=== PATIENT | female | born 1955 | race African-American/Black ===

== ENCOUNTER 2019-09-27 09:19 | Observation (INO) ==
[2019-09-22 14:04] LABS: HEMATOCRIT 30.2 % (37.0-47.0); HEMOGLOBIN 9.4 g/dL (12.0-16.0); MCH 27.6 PG (27-31); MCHC 31.1 g/dL (33-37); MCV 88.8 FL (81-99); MPV 11.2 FL (7.4-10.4); RBC 3.4 XMIL (4.2-5.4); RDW 14.7 % (11.5-14.5); WBC 5.63 X1000 (4.8-10.8)
[2019-09-22 14:27] LABS: CALCIUM 9.5 mg/dL (8.8-10.2); CREATININE 4.3 mg/dL (0.5-0.9); POTASSIUM 4.7 mmol/L (3.5-5.1)
[2019-09-27] MEDS ORDERED: PEPCID ONE (10:16)
[2019-09-27] MEDS ORDERED: REGLAN ONE (10:16)
[2019-09-27] MEDS ORDERED: 1/2 NS 500 ML ONE (10:17)
[2019-09-27] MEDS ORDERED: CLINDAMYCIN 300 MG in NS 50 ML IV ONE (10:30)
[2019-09-27] MEDS ORDERED: APRESOLINE PO ONE (11:15)
[2019-09-27] MEDS ORDERED: TOPROL XL PO ONE (11:15)
[2019-09-27] MEDS ORDERED: AVAPRO PO ONE (11:15)
[2019-09-27] MEDS ORDERED: DIPRIVAN 1% ONE ×2 (12:38→16:42)
[2019-09-27] MEDS ORDERED: NS 1,000 ML ONE (14:12)
[2019-09-27] MEDS ORDERED: HEPARIN ONE (14:12)
[2019-09-27] MEDS ORDERED: XYLOCAINE 1% ONE (14:44)
[2019-09-27] MEDS ORDERED: NEO-SYNEPHRINE ONE (15:15)
[2019-09-27] MEDS ORDERED: NEOSPORIN OINTMENT PACKET ONE (15:27)
[2019-09-27] MEDS ORDERED: HEPARIN (DOSE) ONE (15:29)
[2019-09-27] MEDS: DILAUDID ONE ×5 (17:34→18:34)
[2019-09-27] MEDS: NARCAN ONE ×2 (18:16→18:30)
[2019-09-27] MEDS ORDERED: NARCAN IV ONE (18:30)
[2019-09-27] MEDS ORDERED: ZOFRAN IV PRN (19:12)
[2019-09-27] MEDS ORDERED: NORCO-7.5 PO PRN (19:12)
--- NOTE | 2019-09-27 21:28 | OPERATIVE NOTE ---
PROCEDURE DATE: 09/27/2019 PREOPERATIVE DIAGNOSIS: Chronic kidney disease. POSTOPERATIVE DIAGNOSIS: Chronic kidney disease. PROCEDURE: Creation of left brachiobasilic arteriovenous fistula with transposition. SURGEON: Randy Kyle MD. ANESTHESIA: General. ESTIMATED BLOOD LOSS: 25 mL. COMPLICATIONS: None apparent. FINDINGS: The basilic vein appeared to be of adequate caliber. It dilated up to at least 5 mm and had a good flow through it at the completion of our anastomosis. TECHNIQUE: She was brought to the operating room and placed supine on the table. General anesthesia was induced. The left arm was abducted. She was prepped and draped in usual sterile fashion. The previously marked brachial artery and basilic vein were identified, and an incision was made longitudinally between the two with a knife. This was carried down through the subcutaneous tissue with cautery. The basilic vein was identified near the antecubital fossa where it forked. Each of the forks were dissected out and ligated distally with 4-0 silk. I then proceeded to dissect out the fistula throughout its length for several inches in length, preserving the adjacent nerves and its branches. All of the attachments to the soft tissue were divided with Metzenbaum scissors. There were several venous branches which were ligated proximally and distally with 3-0 and 4-0 silk and divided in between with scissors. Once I felt like I had adequate length of the vein, I marked the anterior aspect with a marking pen and divided it proximal to the fork and antecubital fossa. I then divided the intervening tissue between each of the forked branches so that it spatulated out nicely. I dilated up the vein to a size 5. Proximally, it was occluded and I then filled the vein with heparin saline. There did not appear to be any leaking anywhere and it had good caliber to it. I then dissected out the brachial artery near the antecubital fossa and encircled with vessel loops proximally and distally. Next, 3000 units of heparin were given by the equipment service associate. We allowed this to circulate for 3 minutes. I then occluded the artery proximally and distally and made an arteriotomy. I then created a tunnel subcutaneously lateral to the superior incision by using a hemostat and a curved Larisa clamp. The vein was brought through this tunnel in a subcutaneous fashion with the Larisa clamp. It was kept in its proper orientation and it approximated the artery. It was a little long, so I trimmed the vein back several millimeters. I then occluded the artery proximally and distally with the vessel loops, and made an arteriotomy with and an 11 blade and Call scissors. I then fashioned an end-to-side [id number] anastomosis using running 7-0 Prolene in 2 directions. I reestablished flow in the artery in the fistula. There appeared to be good flow in the fistula. There was minimal oozing from the anastomosis, which was controlled with Gel-Foam. There did not appear to be any bleeding throughout the course of our wound bed. There was good flow in the fistula. I closed the subcutaneous tissues with interrupted 3-0 Polysorb, and the skin with a running 4-0 subcuticular Biosyn and Steri-Strips. She was awakened in stable condition and transferred to the recovery room. cc: Randy Kyle MD
--- NOTE | 2019-09-27 21:41 | OPERATIVE NOTE ---
PROCEDURE DATE: 09/27/2019 PREOPERATIVE DIAGNOSIS: Postoperative bleeding after arteriovenous fistula. POSTOPERATIVE DIAGNOSIS: Postoperative bleeding after arteriovenous fistula. PROCEDURE: Evacuation of hematoma and suture ligation of bleeding venous branches from the fistula. SURGEON: Randy Kyle MD. ANESTHESIA: General. ESTIMATED BLOOD LOSS: 250 mL. COMPLICATIONS: None during this portion, but this was obviously a procedure for postoperative bleeding due to the previous fistula creation on the same date. FINDINGS: The patient was seen in the postoperative recovery room after fistula creation and was noted to have bright red bleeding from the incision. Decision was made to take her back to the operating room for wound exploration and control of bleeding. She had two areas proximally in the fistula where there were silk sutures on vein branches that had come loose. TECHNIQUE: She was brought to the operating room. General anesthesia was induced. She was prepped and draped in usual sterile fashion. The Biosyn stitch was cut with a knife. The subcutaneous Polysorb were cut with scissors. Proximally, I found the source of bleeding from silk sutures that had come off ligated vein branches. Proximal and distal control was obtained with vascular clamps. I oversewed these venous branches with interrupted 6-0 Prolene. I then reestablished flow in the fistula. There were no signs of any further bleeding. I washed out the wound with saline and then closed with interrupted subcutaneous 3-0 Polysorb and skin clips on the skin. There appeared to be good control of the bleeding and maintained flow in the fistula. She was transferred to the recovery room in stable condition. cc: Randy Kyle MD
[2019-09-28 08:36] LABS: HEMATOCRIT 31.6 % (37.0-47.0); HEMOGLOBIN 9.4 g/dL (12.0-16.0)
[2019-09-28] MEDS ORDERED: PERIDEX MT SCH (09:00)
[2019-09-28 12:03] VITALS: BP 170/62
--- NOTE | 2019-09-28 12:42 | GENERAL SURGERY PROGRESS NOTE ---
DATE: 09/28/2019 SUBJECTIVE: The patient is doing okay this morning. She reports soreness in her arm, but not severe pain. She says both hands feel cold, and that is normal for her. OBJECTIVE: Vital Signs: She is afebrile. Vital signs are stable. General: She is awake, alert, and oriented x3. No acute distress. Extremities: The left hand is cool, but she has good function and has a palpable radial pulse in the left wrist. Her upper arm bandage was examined. There was some bloody shadow on the outer gauze. However, there was no active bleeding through the inner gauze. There was no significant hematoma, and there was a thrill in the fistula. ASSESSMENT AND PLAN: A 64-year-old female status post left brachiobasilic transposed fistula creation yesterday with take back for postoperative bleeding. She has been stable overnight. No significant bleeding since her surgery ended last night. We will discharge her home. She will follow up with me next week. Instructions were given. cc: Randy Kyle MD
== END 2019-09-28 12:11 | disposition home or self-care (01) ==
LOC: PAT 09:19 → 4N 09:19 → OPS 09:19
PROVIDERS: ADMIT Surgery; ATTEND Surgery

== ENCOUNTER 2019-11-10 10:07 | Inpatient (IN) ==
[2019-11-10] MEDS ORDERED: ASPIRIN PO ONE (10:27)
--- NOTE | 2019-11-10 10:32 | EKG Report ---
Test Performed on : 11/10/2019 10:18:42 AM Test Reason : SOB Blood Pressure : / mmHG Vent. Rate : 067 BPM Atrial Rate : 067 BPM P-R Int : 148 ms QRS Dur : 074 ms QT Int : 426 ms P-R-T Axes : 046 -14 023 degrees QTc Int : 450 ms Normal sinus rhythm. Inferior infarct (cited on or before 18-MAY-2018) Anterior infarct (cited on or before 18-MAY-2018) Abnormal ECG When compared with ECG of 18-APR-2019 15:41, Nonspecific T wave abnormality no longer evident in Lateral leads Unconfirmed Result
--- NOTE | 2019-11-10 10:51 | Diag Imaging Result Doc PS360 ---
EXAM: CHEST-2 VIEWS HISTORY: SOB TECHNIQUE: Two views COMPARISON: None. FINDINGS: The lungs are well expanded. There are calcified pleural plaques in the mid and lower right hemithorax with multiple old right rib fractures. Heart is mildly enlarged. No pulmonary edema. Questionable trace pleural fluid. IMPRESSION: Right lower pleural calcifications and pleural thickening. Mild cardiomegaly. Electronically signed by Wilbur Romero 11/10/2019 10:49 AM
[2019-11-10 11:35] LABS: BASO# 0.01 X1000 (0.0-0.2); BASO% 0.2 % (0.0-0.8); EOS# 0.06 X1000 (0.0-0.7); HEMATOCRIT 25.4 % (37.0-47.0); HEMOGLOBIN 8.1 g/dL (12.0-16.0); LYMPH# 1.18 X1000 (1.2-3.4); LYMPH% 20.2 % (20.5-51.1); MCH 28.5 PG (27-31); MCHC 31.9 g/dL (33-37); MCV 89.4 FL (81-99); MONO# 0.52 X1000 (0.11-0.59); MONO% 8.9 % (1.7-9.3); MPV 11.6 FL (7.4-10.4); NEUT# 4.07 X1000 (1.4-6.5); NEUT% 69.7 % (42.2-75.2); PLT 172 X1000 (130-400); RBC 2.84 XMIL (4.2-5.4); RDW 15.5 % (11.5-14.5); WBC 5.84 X1000 (4.8-10.8)
[2019-11-10 11:58] LABS: INR 1.03; PROTIME 13.7 Seconds (11.0-16.0)
[2019-11-10 11:59] LABS: PTT 29.7 Seconds (22.3-41.8)
[2019-11-10 12:17] LABS: ALB/GLOB RATIO 1.7; ALBUMIN 3.8 g/dL (3.5-5.0); CALCIUM 8.7 mg/dL (8.8-10.2); CREATININE 5.8 mg/dL (0.5-0.9); MAGNESIUM 1.6 mg/dL (1.5-2.7); POTASSIUM 5.4 mmol/L (3.5-5.1); TOTAL BILIRUBIN 0.48 mg/dL (0.20-1.00); TOTAL PROTEIN 6.1 g/dL (6.3-8.3)
[2019-11-10] MEDS ORDERED: NITROGLYCERIN TOP ONE (13:07)
[2019-11-10] MEDS ORDERED: LASIX IV ONE (13:07)
[2019-11-10] MEDS ORDERED: HUMULIN R IV ONE (13:09)
--- NOTE | 2019-11-10 13:09 | PROVIDER DOCUMENTATION ---
This chart was entered by Kat Garcia Scribe, acting as scribe for Rafael Cantu MD. HPI-Respiratory General - General Chief Complaint: Shortness of Breath Stated Complaint: SOB Time Seen by Provider: 11/10/19 10:23 Source: patient Allergies/Adverse Reactions: Patient Allergies Allergy/AdvReac Type Severity Reaction Status Date / Time amoxicillin [From Augmentin] Allergy Unknown Verified 11/10/19 10:57 clavulanic acid Allergy Unknown Verified 11/10/19 10:57 [From Augmentin] Home Medications: Home Medication List Medication Instructions Recorded Confirmed Last Taken Type Metoprolol Succinate [Toprol Xl] 200 mg PO DAILY 04/14/15 11/10/19 11/10/19 History Furosemide [Lasix] 20 mg PO DAILY 09/22/16 11/10/19 11/09/19 History Hydralazine [Apresoline] 100 mg PO TID 09/22/16 11/10/19 11/10/19 History Insulin Aspart [Novolog Flexpen] 12 unit SQ TID 09/22/16 11/10/19 11/09/19 History Insulin Detemir [Levemir] 40 unit SUBQ DAILY 09/22/16 11/10/19 11/09/19 History Latanoprost 0.005% Oph Soln 1 drop BOTH EYES HS 09/22/16 11/10/19 11/09/19 History [Xalatan 0.005% Oph Soln] Cinnamon Bark [Cinnamon] 500 mg PO DAILY 05/18/18 11/10/19 Unknown History Vitamin B Complex Vit C No.4 150 mg PO DAILY 05/18/18 11/10/19 11/09/19 History [Super B Complex] Amlodipine [Norvasc] 5 mg PO DAILY 09/22/19 11/10/19 11/09/19 History Clonidine [Catapres] 0.1 mg PO HS 09/22/19 11/10/19 11/10/19 History Ergocalciferol (Vitamin D2) 50,000 unit PO Q7D 09/22/19 11/10/19 11/05/19 History [Vitamin D] Irbesartan 150 mg PO DAILY 09/22/19 11/10/19 11/09/19 History Brimonidine/Timolol Ophth Soln 1 drp OPH BID 09/27/19 11/10/19 11/10/19 History [Combigan Ophth Soln] Ezetimibe [Zetia] 10 mg PO DAILY 09/27/19 11/10/19 11/09/19 History Isoniazid [INH] 300 mg PO DAILY 09/27/19 11/10/19 11/09/19 History Netarsudil Mesylate [Rhopressa] 2.5 ml OPHTHALMIC (EYE) DAILY 09/27/19 11/10/19 11/09/19 History Pyridoxine HCl (Vitamin B6) 25 mg PO DAILY 09/27/19 11/10/19 11/09/19 History [Vitamin B-6] Sodium Bicarbonate 650 mg PO BID 09/27/19 11/10/19 11/09/19 History Olmesartan Medoxomil [Benicar] 1 tab PO DAILY 11/10/19 11/10/19 11/10/19 History - History of Present Illness-Resp Nature of Presenting Problem: Patient is a 64 year old female who presents with shortness of breath. States shortness of breath has been gradually worsening. History of asthma and anemia. Denies fever, cough and chest pain. Quality of Pain: reports: none Severity in ED: reports: mild Onset/Duration: reports: gradual Timing: reports: still present, getting worse Cough Quality/Degree: reports: no cough Modifying Factors: worse with: exertion Associated Symptoms: reports: shortness of breath. denies: chest pain/soreness, cough, fever/chills Similar Symptoms Previously?: Yes Recently seen or treated by another doctor?: Yes Review of Systems - Adult - REVIEW OF SYSTEMS - ADULT Constitutional: reports: no symptoms reported. denies: chills, fever, weight loss Eyes: reports: no symptoms reported Ears, Nose, Mouth & Throat: reports: no symptoms reported Cardiovascular: reports: no symptoms reported. denies: chest pain Respiratory: reports: see HPI, dyspnea on exertion, shortness of breath. denies: cough Gastrointestinal: reports: no symptoms reported Genitourinary: reports: no symptoms reported Musculoskeletal: reports: no symptoms reported Integumentary: reports: no symptoms reported Neurological: reports: no symptoms reported Psychiatric: reports: no symptoms reported Endocrine: reports: no symptoms reported Hematologic/Lymphatic: reports: no symptoms reported Allergic/Immunologic: reports: no symptoms reported All Other Systems: Reviewed and Negative Past History - Adult - PAST MEDICAL HISTORY-ADULT Review of Records: reports: Old Records Reviewed, Nursing Assessment Review, Medications Reviewed, Social history reviewed & non-contributory. Major Childhood Illnesses: reports: denies history Cardiovascular: reports: HTN Respiratory: reports: asthma Gastrointestinal: reports: denies history Obstetrical/Gynecological: reports: denies history Genitourinary: reports: kidney disease Musculoskeletal: reports: denies history Neurological: reports: denies history Endocrine/Immune: reports: anemia, Diabetes Other Conditions: reports: denies history - PRIOR SURGERIES/PROCEDURES Surgical/Procedure History: reports: reviewed, not pertinent, - IMMUNIZATION STATUS Childhood Immunizations: See Nurse Assessment Flu Vaccine: See Nurse Assessment - FAMILY HISTORY Family History: reviewed, not pertinent - SOCIAL HISTORY Smoking: cigarettes (former) Substance Use: denies Physical Exam-General - PHYSICAL EXAM-ADULT Initial Vital Signs Reviewed: Yes - CONSTITUTIONAL General Appearance: alert, no apparent distress. negative: lethargic - EYES Eyes: PERRL/EOMI, pale conjunctivae. negative: scleral icterus - HEAD, EARS, NOSE, MOUTH & THROAT HENMT: normocephalic/atraumatic, moist mucous membranes, normal ENT inspection - RESPIRATORY Respiratory: chest non-tender, lungs clear, normal breath sounds. negative: crackles, wheezing - CARDIOVASCULAR Cardiovascular: regular rate, rhythm, no gallop, no murmur. negative: tachycardia - GASTROINTESTINAL (ABDOMEN) Abdominal Exam: normal bowel sounds, non tender, soft. negative: guarding - MUSCULOSKELETAL Extremity: non-tender, normal inspection, other (pale nail beds.). negative: pedal edema - SKIN Integumentary: normal turgor, warm/dry, pallor. negative: abrasion(s), diaphoresis - NEUROLOGIC Neurologic: grossly normal. negative: aphasia, facial droop - PSYCHIATRIC Psych/Mental Status: normal mood/affect, oriented x 3. negative: anxious - HEART Score HEART Score: History: Slightly Suspicious HEART Score: ECG: Non-Specific Repolarization Disturbance/LBBB/PM HEART Score: Age: 45-65 Years HEART Score: Risk Factors for Atherosclerotic Disease: > or = 3 Risk Factors or History of Atherosclerotic Disease HEART Score: Troponin: 1-3x Normal Limit Total HEART Score:: 5 Progress - PLAN OF CARE/RESULTS Progress/Plan/Lab Results: Vital Signs - 8 hr 11/10/19 10:20 11/10/19 10:39 11/10/19 11:28 Temperature 98.0 F Pulse Rate 67 68 66 Respiratory Rate 18 16 15 Blood Pressure 205/71 196/82 182/72 O2 Sat by Pulse Oximetry 93 L 95 97 11/10/19 12:03 Temperature Pulse Rate 65 Respiratory Rate 14 Blood Pressure 176/72 O2 Sat by Pulse Oximetry 93 L Laboratory Results - last 24 hr 11/10/19 11/10/19 11/10/19 11:12 11:12 11:12 WBC 5.84 RBC 2.84 L Hgb 8.1 L Hct 25.4 L MCV 89.4 MCH 28.5 MCHC 31.9 L RDW Std Deviation 15.5 H Plt Count 172 MPV 11.6 H Neut % (Auto) 69.7 Lymph % (Auto) 20.2 L Thayer % (Auto) 8.9 Eos % (Auto) 1.0 Baso % (Auto) 0.2 Neut # (Auto) 4.07 Lymph # (Auto) 1.18 L [place]ayer # (Auto) 0.52 Eos # (Auto) 0.06 Baso # (Auto) 0.01 PT INR PTT (Actin FS) Sodium 141 Potassium 5.4 H Chloride 101 Carbon Dioxide 19 L Anion Gap 21 BUN 65 H Creatinine 5.8 H Estimated GFR/1.73 m2 9 BUN/Creatinine Ratio 11 Glucose 363 H Calculated Osmolality 315 Calcium 8.7 L Magnesium 1.6 Total Bilirubin 0.48 AST 26 ALT 37 H Alkaline Phosphatase 104 Creatine Kinase 297 H Creatine Kinase Index 1.3 CK-MB (CK-2) 3.73 Troponin T May-P-Ayntielywfh Pept Total Protein 6.1 L Albumin 3.8 Globulin 2.3 Albumin/Globulin Ratio 1.7 TSH 1.40 Urine Source Urine Color Urine Turbidity Urine pH Ur Specific [place] Urine Protein Ur Glucose (Stick) Ur Ketones (Stick) Urine Blood Urine Nitrite Urine Bilirubin Urobilinogen Dipstick Urine Leukocytes Urine WBC (Auto) Urine RBC (Auto) U Epithel Cells (Auto) Urine Bacteria (Auto) Blood Type Antibody Screen 11/10/19 11/10/19 11/10/19 11:12 11:12 11:12 WBC RBC Hgb Hct MCV MCH MCHC RDW Std Deviation Plt Count MPV Neut % (Auto) Lymph % (Auto) Thayer % (Auto) Eos % (Auto) Baso % (Auto) Neut # (Auto) Lymph # (Auto) Thayer # (Auto) Eos # (Auto) Baso # (Auto) PT 13.7 INR 1.03 PTT (Actin FS) 29.7 Sodium Potassium Chloride Carbon Dioxide Anion Gap BUN Creatinine Estimated GFR/1.73 m2 BUN/Creatinine Ratio Glucose Calculated Osmolality Calcium Magnesium Total Bilirubin AST ALT Alkaline Phosphatase Creatine Kinase Creatine Kinase Index CK-MB (CK-2) Troponin T 0.113 H Oem-B-Geukucfycel Pept 21615 H Total Protein Albumin Globulin Albumin/Globulin Ratio TSH Urine Source Urine Color Urine Turbidity Urine pH Ur Specific [place] Urine Protein Ur Glucose (Stick) Ur Ketones (Stick) Urine Blood Urine Nitrite Urine Bilirubin Urobilinogen Dipstick Urine Leukocytes Urine WBC (Auto) Urine RBC (Auto) U Epithel Cells (Auto) Urine Bacteria (Auto) Blood Type Antibody Screen 11/10/19 11/10/19 11:12 12:26 WBC RBC Hgb Hct MCV MCH MCHC RDW Std Deviation Plt Count MPV Neut % (Auto) Lymph % (Auto) Thayer % (Auto) Eos % (Auto) Baso % (Auto) Neut # (Auto) Lymph # (Auto) Thayer # (Auto) Eos # (Auto) Baso # (Auto) PT INR PTT (Actin FS) Sodium Potassium Chloride Carbon Dioxide Anion Gap BUN Creatinine Estimated GFR/1.73 m2 BUN/Creatinine Ratio Glucose Calculated Osmolality Calcium Magnesium Total Bilirubin AST ALT Alkaline Phosphatase Creatine Kinase Creatine Kinase Index CK-MB (CK-2) Troponin T Dkq-H-Wtmbjrhpspd Pept Total Protein Albumin Globulin Albumin/Globulin Ratio TSH Urine Source CLEAN CATCH Urine Color YELLOW Urine Turbidity CLEAR Urine pH 6.5 Ur Specific [place] 1.012 Urine Protein 300 A Ur Glucose (Stick) 1000 A Ur Ketones (Stick) TRACE A Urine Blood TRACE A Urine Nitrite NEGATIVE Urine Bilirubin NEGATIVE Urobilinogen Dipstick NORMAL Urine Leukocytes NEGATIVE Urine WBC (Auto) <10 Urine RBC (Auto) <10 U Epithel Cells (Auto) <10 Urine Bacteria (Auto) NEGATIVE Blood Type O POSITIVE Antibody Screen NEGATIVE Orders Category Date Time Status Cardiac Monitoring DIRECTED Care 11/10/19 10:27 Active Oxygen Therapy- ED Nursing DIRECTED Care 11/10/19 10:27 Active Saline Loc NOW Care 11/10/19 10:27 Active CHEST-2 VIEWS [RAD] Stat Exams 11/10/19 10:27 Completed CBC WITH ELECTRONIC DIFF [HEME] Stat Lab 11/10/19 11:12 Completed CK PROFILE [SP CHEM] Stat Lab 11/10/19 11:12 Completed COMPREHENSIVE METABOLIC PANEL [CHEM] Stat Lab 11/10/19 11:12 Completed MAGNESIUM [CHEM] Stat Lab 11/10/19 11:12 Completed PRO B-NATRIURETIC PEPTIDE Stat Lab 11/10/19 11:12 Completed PROTIME WITH INR [COAG] Stat Lab 11/10/19 11:12 Completed PTT [COAG] Stat Lab 11/10/19 11:12 Completed TROPONIN T Stat Lab 11/10/19 11:12 Completed TSH Stat Lab 11/10/19 11:12 Completed TYPE & SCREEN [BBK] Stat Lab 11/10/19 11:12 Completed URINALYSIS W/POSS RFLX CULT [URINALYSIS] Stat Lab 11/10/19 12:26 Completed Aspirin Med 11/10/19 10:27 Discontinued 325 mg PO NOW ONE Furosemide [Lasix] Med 11/10/19 13:07 Discontinued 20 mg IV NOW ONE Insulin Human Regular [Humulin R] Med 11/10/19 13:09 Discontinued 10 unit IV NOW ONE Nitroglycerin Med 11/10/19 13:07 Discontinued 0.5 inch TOP NOW ONE CP/SOB/Palp >45 yrs of Age Stat Oth 11/10/19 10:27 Ordered EKG [EKG] Stat Ther 11/10/19 10:27 Draft Result Diagrams: 11/10/19 11:12 11/10/19 11:12 - REASSESSMENT Reassessment #1 Time Reassessed: 13:04 Status: unchanged (Patient's renal function is worsening, her anemia is worse, and there is evidence of CHF as well. No prior cardiac cardiac work-up. Troponin is elevated as well. Needs admission.) Reassessment Comment: ALso given IV insulin for hyperglycemia, nitropaste, po asa, IV lasix - EKG 1 Time of EKG reading by physician:: 10:18 EKG Read and Signed by:: Rafael Cantu EKG Interpretation (*Must complete 3 of following elements*): Abnormal Rate: 67 Rhythm: NSR [place]: normal [place] Interval: normal Comments: NAD; poor R wave; NSSTTWC - XRAY 1 XRAY Study: Chest Impression: See EMR Report (EXAM: CHEST-2 VIEWS HISTORY: SOB TECHNIQUE: Two views COMPARISON: None. FINDINGS: The lungs are well expanded. There are calcified pleural plaques in the mid and lower right hemithorax with multiple old right rib fractures. Heart is mildly enlarged. No pulmonary edema. Questionable trace pleural fluid. IMPRESSION: Right lower pleural calcifications and pleural thickening. Mild cardiomegaly. Electronically signed by Wilbur Romero 11/10/2019 10:49 AM 11/10/19 1049 Interpreting Physician: Wilbur Romero MD Dictated Date/Time: 11/10/19 1047 cc: Rafael Cantu MD; Cecil Ford MD) - CONSULTS/PCP/HOSPITALIST Notification #1 *Consult/PCP/Hospitalist*: MARCELO Hernandez, paged at 1300 Time Discussed: 14:00 Reason/Comments: Dr. Cantu consulted with Vicenta about patient Consult Disposition: Will see in ED, Admit #2 Consult: [place] Time Discussed: 13:21 Consult Disposition: other (will see in consult) Departure - Departure Date of Disposition Decision: 11/10/19 Time of Disposition Decision: 13:05 DIAGNOSIS: Exertional dyspnea, Elevated troponin I level, New onset of congestive heart failure, Type 2 diabetes mellitus with hyperglycemia, with long-term current use of insulin Anemia in chronic kidney disease (CKD) Qualifiers: Chronic kidney disease stage: stage 4 (severe) Qualified Code(s): N18.4 - Chronic kidney disease, stage 4 (severe) Disposition: ADMITTED INPATIENT 09 Certified Medical Emergency: Emergent Condition: Fair Referrals and Follow-Ups: Cecil Ford MD [Primary Care Provider] - - Critical Care Note This patient required my direct & personal management of CC.: Yes Total Time (mins): 40 Critical Care Statement: This patient required my direct personal management to treat or rule out processes, the absence of which, could potentiallly result in sudden, clinically significant life or limb threatening deterioration. Attestation - Physician/ SEBAS Attestation Patient care was provided by Advanced Practice Provider:: No The physician spent face to face time with patient:: Yes Advanced Practice Provider documentation review:: Supervising physician onsite and consulted in the evaluation and care of this patient. The physician did have a face to face encounter with the patient. This chart was documented by the indicated scribe, (Kat Garcia, Joan) and accurately reflects the services I performed and decisions made by me, Rafael Cantu MD, as attested by the provider's signature.
[2019-11-10 13:12] LABS: URINE SOURCE CLEAN CATCH
[2019-11-10 13:17] LABS: BILIRUBIN URINE NEGATIVE (NEGATIVE); BLOOD URINE TRACE (NEGATIVE); COLOR YELLOW; GLUCOSE URINE 1000 mg/dL (NEGATIVE); KETONE URINE TRACE mg/dL (NEGATIVE); LEUKOCYTES URINE NEGATIVE (NEGATIVE); NITRITE URINE NEGATIVE (NEGATIVE); PH URINE 6.5; PROTEIN URINE 300 mg/dL (NEGATIVE); SP GRAVITY URINE 1.012; TURBIDITY URINE CLEAR (CLEAR); UR EPITHELIAL CELLS <10 /HPF (<10); URINE BACTERIA NEGATIVE /HPF; URINE RBC <10 /HPF (<10); URINE WBC <10 /HPF (<10); UROBILINOGEN URINE NORMAL (NORMAL)
[2019-11-10 13:49] LABS: CK INDEX 1.3 (0.0-2.5); CK-MB 3.73 ng/mL (0.0-5.0)
[2019-11-10] MEDS ORDERED: ZOFRAN IV PRN (15:00)
[2019-11-10] MEDS ORDERED: VELTASSA PO ONE (15:17)
[2019-11-10] MEDS ORDERED: LASIX IV SCH (17:15)
[2019-11-10] MEDS ORDERED: APRESOLINE IV ONE (17:24)
[2019-11-10 17:42] LABS: CK INDEX 1.3 (0.0-2.5); CK-MB 3.26 ng/mL (0.0-5.0)
--- NOTE | 2019-11-10 18:24 | HISTORY AND PHYSICAL ---
ADDENDUM: The patient seen and examined by me [id number]. All the laboratory, vital signs, and images were reviewed. The patient presented to the emergency department with shortness of breath that has been getting worse for the past few days. It looks like she has been prepared to be dialyzed in the near future and actually she had a fistula done recently on the left arm that is working fine. Her creatinine went up compared with last month from 4.3 to 5.8 and her potassium is 5.4 today. Troponin slightly elevated at 0.11 and then the second one is 0.10, but she is not complaining of chest pain, jaw pain, or arm pain. This could be related with her chronic kidney disease. EKG did not show any ST changes, but shows normal sinus rhythm. She does have a chest x- ray today that showed apparently right lower pleural calcification and pleural thickening. She already had a CT scan done a couple years ago that showed also evidence of a prior granulomatosis infection but no pneumonia at that time and thick pleural calcification in the right hemithorax, so I do not think this lesion is new. This patient has high blood pressure. I will put her on hydralazine as needed. I will continue with her home medications. As per the patient, she already took her morning. Dr. Gannon has been consulted, Nephrology Department, for possible dialysis and management. She received a dose of Veltassa to try to decrease a little bit the potassium level which is 5.4. We will monitor. It looks like she has a history of asthma and anemia and anemia probably is chronic, normocytic. I will get the anemia workup. I agree with the rest of the nurse practitioner's assessment and plan. cc: Shane Cedillo MD
[2019-11-10] MEDS ORDERED: APRESOLINE PO SCH (21:00)
[2019-11-10] MEDS: APRESOLINE IV PRN (21:05)
[2019-11-10] MEDS: APRESOLINE PO SCH (21:05)
[2019-11-10] MEDS: MIRALAX PO SCH (21:06)
[2019-11-10] MEDS: CATAPRES PO SCH (21:06)
[2019-11-10] MEDS: HUMALOG SUBQ SCH (21:06)
--- NOTE | 2019-11-10 21:32 | HISTORY AND PHYSICAL ---
CHIEF COMPLAINT: Shortness of breath. HISTORY OF PRESENT ILLNESS: This is a very pleasant, 64-year-old female who presented to the emergency room complaining of increasing shortness of breath that has been present over the last 4 days. She states over the last 2 days she has developed about 60- to 90-degree orthopnea, sleeping in a chair. She denied any fevers or chills or productive cough. She denies any prior episodes. She does have a history of acute kidney injury. Having been prepared to be dialyzed in the near future, she underwent placement of a fistula on 09/28/2019. She is being followed by Dr. Gannon. Creatinine today is 5.8. In review, she has stayed at 4.1 to 4.3 since 02/07/2019. She denies any change in her medications. She denies any chest pain or palpitations. PAST MEDICAL HISTORY: Hypertension, chronic kidney disease, asthma, diabetes mellitus type 2. PAST SURGICAL HISTORY: , left arm AV fistula. SOCIAL HISTORY: She denies any alcohol, tobacco, or illicit drug use. ALLERGIES: Augmentin with unknown reaction. HOME MEDICATIONS: List will be obtained by the nursing staff, and once verified, will review and restart as appropriate. REVIEW OF SYSTEMS: Discussed with the patient the pertinent positives stated in the HPI. She denied any chest pain or palpitations, any syncope or dizziness, any fevers or chills or productive cough, any nausea, vomiting, diarrhea, constipation, black or bloody vomitus or stools, any hematuria, dysuria, frequency or urgency. PHYSICAL EXAMINATION: GENERAL: This is a 64-year-old female who is sitting up on the stretcher in the emergency room in no distress. VITAL SIGNS: Blood pressure is 176/70 with a heart rate of 65. Respirations are 16. Temperature is 97.9 oral with room air saturations 93% to 97%. EYES: Pupils are equal and round and react to light. EOMs are intact. Sclerae are anicteric. HEENT: Head is normocephalic, atraumatic. Mucous membranes moist. NECK: Supple with trachea midline. CARDIOVASCULAR: Regular rate and rhythm. S1 and S2 appreciated. She does have some bilateral lower extremity edema with peripheral pulses palpable x4 extremities. Calves are nontender bilaterally. PULMONARY: Breath sounds are clear. No increased work of breathing noted. Chest rises and falls symmetrically with respiration. Chest wall is nontender to palpation. GASTROINTESTINAL: Abdomen is soft, nontender, nondistended with bowel sounds in all 4 quadrants. NEUROLOGIC: She is alert oriented x3. SKIN: Warm and dry. LABS: WBC is 5.8 with hemoglobin 8.1, hematocrit 25.4, platelets of 172. Sodium 141, potassium 5.4, BUN 65 with creatinine 5.8, and blood sugar of 363. Troponin at 11 o'clock was 0.113. Repeat troponin at 5 was 0.107 with a proBNP of 21,353. Urinalysis was positive for glucose. Chest x-ray revealed right lower pleural calcifications and pleural thickening with mild cardiomegaly. ASSESSMENT: 1. Acute kidney injury in the setting of chronic kidney disease. 2. Hyperkalemia. 3. Hypertension. 4. Elevated troponin. 5. Elevated proBNP. 6. Diabetes mellitus type 2 with hyperglycemia. 7. Shortness of breath. PLAN: The patient will be admitted to the hospital and placed on telemetry. Will give supplemental oxygen as needed. We will update her home medications, and once verified, will review and restart as appropriate. She will be placed on a renal diabetic diet. We will consult Dr. Gannon. Will trend her troponins and cardiac profile, checking a renal profile daily. We will continue hydralazine 125 mg p.o. every 8 hours. We will give a dose of Veltassa now and check labs in the morning. Will pattern blood glucose with sliding-scale insulin. We will order anemia workup. The patient was examined, and the plan was discussed with Dr. Ponce. Further treatments pending hospital course. Dictated by MARCELO Steen for Shane Cedillo MD cc: MARCELO Steen MD
[2019-11-10 22:54] LABS: CK INDEX 1.1 (0.0-2.5); CK-MB 2.53 ng/mL (0.0-5.0)
[2019-11-11] MEDS: APRESOLINE PO SCH ×3 (04:34→21:22)
[2019-11-11] MEDS: APRESOLINE IV PRN ×3 (04:34→18:49)
[2019-11-11 05:45] LABS: HEMATOCRIT 25.6 % (37.0-47.0); HEMOGLOBIN 8.1 g/dL (12.0-16.0); MCH 28.3 PG (27-31); MCHC 31.6 g/dL (33-37); MCV 89.5 FL (81-99); MPV 11.2 FL (7.4-10.4); RBC 2.86 XMIL (4.2-5.4); RDW 15.7 % (11.5-14.5); WBC 5.39 X1000 (4.8-10.8)
[2019-11-11 05:57] LABS: IRON SATURATION 20 %; TIBC 240 ug/dL; TOTAL IRON 48 ug/dL (49-151); UNBOUND IRON 192 ug/dL (112-346)
[2019-11-11 06:07] LABS: ALBUMIN 3.5 g/dL (3.5-5.0); CALCIUM 8.8 mg/dL (8.8-10.2); PHOSPHORUS 4.4 mg/dL (2.7-4.5); POTASSIUM 4.3 mmol/L (3.5-5.1)
[2019-11-11 06:10] LABS: FERRITIN 121 ng/mL (13-150)
[2019-11-11] MEDS: HUMALOG SUBQ SCH ×4 (06:15→21:26)
[2019-11-11] MEDS ORDERED: HUMALOG SUBQ SCH (08:00)
[2019-11-11] MEDS ORDERED: APRESOLINE PO SCH (09:00)
[2019-11-11] MEDS: LASIX PO SCH (09:15)
[2019-11-11] MEDS: NORVASC PO SCH (09:15)
[2019-11-11] MEDS: ZETIA PO SCH (09:15)
[2019-11-11] MEDS: LEVEMIR SUBQ SCH (09:16)
[2019-11-11] MEDS: AVAPRO PO SCH (09:16)
[2019-11-11] MEDS: MIRALAX PO SCH ×2 (09:16→21:26)
[2019-11-11] MEDS ORDERED: EMLA CREAM TOP ONE (11:41)
--- NOTE | 2019-11-11 13:48 | PROGRESS NOTE ---
DATE: 11/11/2019 SUBJECTIVE: The patient seems to be feeling better today. She has been scheduled for dialysis, her shortness of breath is improving. Will monitor for now. OBJECTIVE: Vital Signs: Temperature 98.2 degrees, pulse 72, respiratory rate 16, blood pressure 219/67, oxygen saturation 93 on room air. HEENT: Head normocephalic, no trauma. PERRLA. Neck: Supple. No JVD. No masses. Central trachea. Chest: Clear to auscultation. No wheezing. No rales. Abdomen: Soft, nontender, nondistended. No hepatosplenomegaly. Extremities: No clubbing, no cyanosis. She has a left arm AV fistula. Neurological: The patient is awake, alert, oriented x3. No focal deficits. LABORATORY: WBC 5.3, hemoglobin 8.1, hematocrit 25.6, platelets 178,000. Sodium 140, potassium 4.3, chloride 103, bicarbonate 22, BUN 61, creatinine 6, glucose 214, calcium 8.8. ASSESSMENT AND PLAN: 1. Acute on chronic kidney disease, this patient has been basically prepared for dialysis. She has a left arm fistula that will be used for the very 1st time today, will continue to monitor. 2. Some chest discomfort with shortness of breath. Her troponins have been elevated but actually they are trending down slowly, likely related to her acute on chronic kidney disease. Hopefully these will be better after dialysis. Her EKG did not show any ST abnormalities. 3. Type 2 diabetes, I will check a hemoglobin A1c. For now we will continue with same treatment and let us see how she does. 4. Hypertension, uncontrolled, I have placed this patient back on her home medications, also will continue with hydralazine as needed, she will get dialysis today so hopefully this will help a little bit. 5. Hyperkalemia, resolved. cc: Shane Cedillo MD
--- NOTE | 2019-11-11 14:04 | NEPHROLOGY CONSULTATION ---
DATE: 11/11/2019 REASON FOR CONSULTATION: End-stage renal disease, dyspnea, medical management. CONSULTING PROVIDER: Shane Cedillo MD. HISTORY OF PRESENT ILLNESS: Ms. Wilburn is a 64-year-old woman who is well known to us. We have been following her for an extended time as she has progressive chronic kidney disease stage V. She had a left upper arm basilic vein transposition fistula created on 09/27/2019. She had immediate postoperative bleeding that was managed surgically and has done well since then. She came to the hospital because of 2 days of worsening shortness of breath as well as sleep disturbance. No cough, chills, fever. Her evaluation in the emergency room found her blood pressure elevated at 205/71 with room air saturation of 93%. No anorexia or vomiting. PAST MEDICAL HISTORY: 1. Diabetes. 2. Hypertension. 3. CKD stage 5. 4. COPD/asthma. HOME MEDICATIONS: Include 1. Metoprolol. 2. Latanoprost. 3. Hydralazine. 4. Insulin. 5. Furosemide. 6. Multivitamin. 7. Amlodipine. 8. Clonidine. 9. Ergocalciferol. 10. Irbesartan. 11. INH. 12. Sodium bicarbonate. 13. Combigan. 14. Ezetimibe. 15. Olmesartan. ALLERGIES: Amoxicillin. SOCIAL HISTORY: No alcohol or tobacco. FAMILY HISTORY: Noncontributory. REVIEW OF SYSTEMS: Noncontributory. PHYSICAL EXAMINATION: Vital Signs: Blood pressure 219/67, heart rate 72, respirations 16, afebrile. General: Middle-aged woman sitting up in no distress. Skin: Warm and dry. Conjunctivae are pink. Pupils are equal. Oropharynx is clear. Normal tongue. Normal teeth. Neck: Supple. Trachea is midline. Neck vein distention is not appreciated. Heart: PMI is nondisplaced. Regular rate and rhythm. No rubs. Lungs: Have equal excursion, equal breath sounds. No crackles, wheezes, accessory muscle use or retractions. Abdomen: Soft, nontender. Bowel sounds present. No organomegaly. Extremities: One to 2+ edema. No clubbing or cyanosis. Left upper arm AV fistula is well healed and mature. IMPRESSION: 1. Chronic kidney disease stage V. Multiple uremic symptoms. We will initiate hemodialysis today with a 2-hour treatment using a 2 potassium bath and a goal of 1 to 2 L ultrafiltration. Repeat tomorrow. 17-gauge needles with 250 blood flow. 2. Anemia: We will check iron stores, B12, folate. IV iron. 3. Hypertension. Continue home medications and re-evaluate after volume management is improved. cc: Ronnie Gannon MD
--- NOTE | 2019-11-11 18:15 | ECHO REPORT ---
ORDER DATE: 11/10/2019 INDICATIONS: Dyspnea, elevated proBNP. FINDINGS: 1. The right atrium appears mildly enlarged at 4.2 cm. 2. Mild tricuspid regurgitation. 3. Normal RV size and systolic function. 4. No significant pulmonic insufficiency. 5. Severe left atrial enlargement with a volume index of 45. 6. No mitral prolapse. Mild mitral regurgitation. No mitral stenosis. 7. Normal LV size. The end-diastolic dimension is estimated at 5.3 cm. Moderate left ventricular hypertrophy with interventricular septal wall thickness of 1.6 cm. Normal LV systolic function. Estimated EF is 60% with normal wall motion. 8. Aortic valve opens well. It is sclerotic. Mild insufficiency. No stenosis. It is trileaflet. 9. Aorta appears normal in visualized segments. 10. There is a suggestion of a small posterior pericardial effusion. No clear evidence of tamponade-type physiology. cc: MD Selena Sevilla CRNP
[2019-11-11] MEDS ORDERED: HEPARIN IV PRN (18:55)
[2019-11-11] MEDS ORDERED: NS 2,000 ML MISC PRN (18:55)
[2019-11-11] MEDS: CATAPRES PO SCH (21:22)
[2019-11-11] MEDS: XALATAN 0.005% OPH SOLN BOTH EYES SCH (21:53)
[2019-11-11] MEDS: COMBIGAN OPHTH SOLN OPH SCH (21:54)
[2019-11-12] MEDS: PATIENT'S OWN MED OPH SCH ×3 (01:54→21:49)
[2019-11-12] MEDS: APRESOLINE PO SCH ×3 (04:55→21:45)
[2019-11-12 05:35] LABS: HEMATOCRIT 27.9 % (37.0-47.0); HEMOGLOBIN 8.8 g/dL (12.0-16.0); MCH 28.1 PG (27-31); MCHC 31.5 g/dL (33-37); MCV 89.1 FL (81-99); MPV 11.2 FL (7.4-10.4); RBC 3.13 XMIL (4.2-5.4); RDW 16.2 % (11.5-14.5); WBC 6.12 X1000 (4.8-10.8)
[2019-11-12 05:52] LABS: HEMOGLOBIN A1C 7.8 % (4.8-6.0)
[2019-11-12 06:01] LABS: ALBUMIN 3.3 g/dL (3.5-5.0); CALCIUM 8.4 mg/dL (8.8-10.2); CREATININE 4.4 mg/dL (0.5-0.9); PHOSPHORUS 3.9 mg/dL (2.7-4.5); POTASSIUM 3.9 mmol/L (3.5-5.1)
[2019-11-12] MEDS: HUMALOG SUBQ SCH ×4 (06:02→21:40)
[2019-11-12] MEDS ORDERED: VITAMIN D PO SCH (09:00)
[2019-11-12] MEDS: COMBIGAN OPHTH SOLN OPH SCH ×3 (09:27→21:48)
[2019-11-12] MEDS: VENOFER 200 MG in NS 150 ML IV SCH (09:27)
[2019-11-12] MEDS: AVAPRO PO SCH (09:27)
[2019-11-12] MEDS: MIRALAX PO SCH ×2 (09:27→21:46)
[2019-11-12] MEDS: NORVASC PO SCH (09:27)
[2019-11-12] MEDS: ZETIA PO SCH (09:27)
[2019-11-12] MEDS: LASIX PO SCH (09:27)
[2019-11-12] MEDS: LEVEMIR SUBQ SCH (09:30)
--- NOTE | 2019-11-12 12:46 | NEPHROLOGY PROGRESS NOTE ---
DATE: 11/12/2019 SUBJECTIVE: She tolerated dialysis yesterday without difficulty. No difficulty with cannulation except that she did have some pain. OBJECTIVE: Vital Signs: Blood pressure 168/52, heart rate 65, respirations 17, afebrile. General: No acute distress. Skin: Warm and dry. HEENT: Conjunctivae are pink. Neck: Neck veins are 6 cm. Heart: Regular. No gallops. Lungs: Equal. No crackles. Abdomen: Soft. Bowel sounds present. Extremities: No edema. IMPRESSION: CKD 5B. Dialysis again today for 3.5 hours using a 3 potassium bath. 1 to 2 L ultrafiltration. Electrolytes/acid base in target. Hemoglobin is below target but stable. Continue IV iron. Blood pressure is above target but improved overall. She is on her home medications. We will continue to observe as we manage her volume status. She is taking clonidine at nighttime only so I will change that to twice daily. cc: Ronnie Gannon MD
[2019-11-12] MEDS: CATAPRES PO SCH (21:45)
[2019-11-12] MEDS: XALATAN 0.005% OPH SOLN BOTH EYES SCH (21:46)
[2019-11-13] MEDS: APRESOLINE IV PRN (04:12)
[2019-11-13] MEDS: APRESOLINE PO SCH ×3 (04:17→21:21)
[2019-11-13 06:02] LABS: ALBUMIN 3.4 g/dL (3.5-5.0); CALCIUM 8.8 mg/dL (8.8-10.2); CREATININE 4.9 mg/dL (0.5-0.9); PHOSPHORUS 4.7 mg/dL (2.7-4.5)
[2019-11-13] MEDS: HUMALOG SUBQ SCH ×4 (06:04→21:32)
[2019-11-13] MEDS: NORVASC PO SCH (08:43)
[2019-11-13] MEDS: LEVEMIR SUBQ SCH (08:43)
[2019-11-13] MEDS: COMBIGAN OPHTH SOLN OPH SCH (08:43)
[2019-11-13] MEDS: AVAPRO PO SCH (08:43)
[2019-11-13] MEDS: ZETIA PO SCH (08:44)
[2019-11-13] MEDS: VENOFER 200 MG in NS 150 ML IV SCH (08:44)
[2019-11-13] MEDS: MIRALAX PO SCH ×2 (08:44→21:21)
[2019-11-13] MEDS: CATAPRES PO SCH ×2 (08:44→21:22)
[2019-11-13 10:55] LABS: HEPATITIS PROFILE ACUTE SEE COMMENTS
--- NOTE | 2019-11-13 13:50 | PROGRESS NOTE ---
DATE: 11/13/2019 SUBJECTIVE: Patient is resting comfortable in bed. Not in any obvious distress. OBJECTIVE: Vital signs: Temperature is 98.6 degrees, pulse 72, respiratory rate is 18, blood pressure is 161/50, oxygen saturation 97%. HEENT: Atraumatic, normocephalic. Cardiovascular: S1, S2. Respiratory system: Has evidence of good air entry bilaterally. Abdomen: Soft, nontender. No masses felt. Extremities: No evidence of edema. Central nervous system: No obvious focal deficits noted. LABORATORY DATA: potassium 4.0, chloride is 104, bicarb 24, BUN is 47, creatinine is 4.9. ASSESSMENT AND PLAN: 1. Acute on chronic kidney disease. Hemodialysis by recommendation of Nephrology. 2. Type 2 diabetes mellitus. Continue blood sugar monitoring as well as sliding scale insulin. 3. Hypertension. Optimize blood pressure control. 4. Deep vein thrombosis prophylaxis. Sequential compression devices. 5. Gastrointestinal prophylaxis. Proton pump inhibitor. cc: Ramiro Best MD MTDD
[2019-11-13] MEDS: XALATAN 0.005% OPH SOLN BOTH EYES SCH (21:25)
[2019-11-13] MEDS: PATIENT'S OWN MED OPH SCH (21:30)
[2019-11-14] MEDS ORDERED: D50W SYRINGE IV ONE (01:02)
[2019-11-14] MEDS: COMBIGAN OPHTH SOLN OPH SCH ×4 (01:04→21:52)
[2019-11-14] MEDS: APRESOLINE PO SCH ×3 (06:03→21:16)
[2019-11-14] MEDS: VENOFER 200 MG in NS 150 ML IV SCH (08:00)
[2019-11-14] MEDS: AVAPRO PO SCH (08:01)
[2019-11-14] MEDS: MIRALAX PO SCH ×2 (08:01→21:17)
[2019-11-14] MEDS: ZETIA PO SCH (08:01)
[2019-11-14] MEDS: CATAPRES PO SCH ×2 (08:01→21:16)
[2019-11-14] MEDS: NORVASC PO SCH (08:01)
[2019-11-14] MEDS: LEVEMIR SUBQ SCH (08:02)
[2019-11-14] MEDS: HUMALOG SUBQ SCH ×4 (08:03→21:20)
[2019-11-14] MEDS ORDERED: EPOGEN SUBQ ONE (08:31)
[2019-11-14 08:40] LABS: BASO# 0.02 X1000 (0.0-0.2); BASO% 0.4 % (0.0-0.8); EOS# 0.13 X1000 (0.0-0.7); EOS% 2.7 % (0.0-10.0); HEMOGLOBIN 8.6 g/dL (12.0-16.0); LYMPH# 2.09 X1000 (1.2-3.4); LYMPH% 43.5 % (20.5-51.1); MCH 27.4 PG (27-31); MCHC 30.7 g/dL (33-37); MCV 89.2 FL (81-99); MONO# 0.56 X1000 (0.11-0.59); MONO% 11.6 % (1.7-9.3); MPV 10.1 FL (7.4-10.4); NEUT# 2.01 X1000 (1.4-6.5); NEUT% 41.8 % (42.2-75.2); PLT 175 X1000 (130-400); RBC 3.14 XMIL (4.2-5.4); RDW 15.8 % (11.5-14.5); WBC 4.81 X1000 (4.8-10.8)
[2019-11-14 09:20] LABS: CALCIUM 8.3 mg/dL (8.8-10.2); POTASSIUM 4.7 mmol/L (3.5-5.1)
[2019-11-14] MEDS: EPOGEN SUBQ ONE ×2 (10:04→11:15)
--- NOTE | 2019-11-14 14:40 | PROVIDER PROGRESS NOTE ---
Progress Note Subjective: Voiced a hypoglycemic event last night and complains of headache. Denies any other complaints. Objective: temperature 98.4, pulse 70, respiration 16, blood pressure 131/41, 02 sat 92% on room air. General: obese -[place] female lying in bed in no acute distress. HEENT: normocephalic, atraumatic, pupils equal and reactive. Mucous membranes moist. Trachea midline. Skin: warm and dry. [place] to left upper arm were clean and dry. Neck: supple, 6 cm JVD. Cardiovascular: s1s2 regular rate and rhythm. No murmur or gallop. Respiratory: clear with equal air entry. Abdomen: obese, soft, nontender, nondistended. Bowel sounds present. : non inspected Extremities: Trace edema to BLE Neurological: alert and oriented to person, place, and time at the moment. Labs: intake 1044, output 1300. Wbc 4.81, hemoglobin 8.6, hematocrit 28.6, platelet count 175. Impression: Chronic kidney disease stage 5D. Hospital staff had trouble cannulating her fistula yesterday so we will have vascular lab ultrasound her fistula site before use again. We are planning to dialyze her again today. Blood pressure. In target. Increased clonidine yesterday. Fluid volume. Euvolemic on exam. Anemia. She was due her Epogen injection in the office today, we will give this in the hospital and continue IV iron. Electrolytes and acid base balance. Stable. Nutrition. Adequate. Ambulation. Ambulating in room. Medication review.
[2019-11-14] MEDS ORDERED: HEPARIN IV PRN (14:43)
[2019-11-14] MEDS ORDERED: NS 2,000 ML MISC PRN (14:43)
--- NOTE | 2019-11-14 17:34 | PROGRESS NOTE ---
DATE: 11/14/2019 INTERVAL HISTORY: Patient with some hypoglycemia overnight down to 28 at one point. The patient was essentially asymptomatic during that episode. It has now improved. No other acute events. No new complaints. REVIEW OF SYSTEMS: Twelve-point review of systems negative except as per interval history. LABORATORY DATA: WBC 4.8, hemoglobin 8.6, hematocrit 28.0, platelets 175,000. Sodium 147, potassium 4.7, BUN 56, creatinine 6.0, glucose 28 to 199. VITALS: T-max 98.9 degrees, pulse 77, respirations 20, blood pressure 194/66, O2 saturation 99% on room air. OBJECTIVE: General: No acute distress. Vitals: As above. HEENT: Normocephalic, atraumatic. Moist mucous membranes. No cervical adenopathy. Cardiovascular: Regular rate and rhythm. No murmurs noted. Pulmonary: Essentially clear to auscultation bilaterally. Abdomen: Soft, nontender, nondistended. Bowel sounds positive. Extremities: Peripheral pulses decreased but present. No clubbing or cyanosis. Fistula in left arm with good thrill. Neurologic: Cranial nerves grossly intact. No focal deficits identified. Psychiatric: Normal mood and affect. Awake, alert, and oriented x3. Skin: No new rashes or lesions identified. ASSESSMENT AND PLAN: 1. Chronic kidney disease 5 versus end-stage renal disease. Patient currently on dialysis. Nephrology following and still debating whether or not dialysis will be permanent. Also having some access issues, which they plan on having vascular lab ultrasound to her fistula as a double-check. We will see what nephrology says. 2. Hypertension. Clonidine increased yesterday but still quite high. We will see if dialysis improves this somewhat, but we will also go ahead and increase her Norvasc. 3. Diabetes mellitus, hypoglycemia. Significant low blood sugar overnight. We will decrease Levemir significantly from 40 down to 30. We will leave sliding scale same for now but may have to increase that a little after decreasing her Levemir. We will also check a middle of the night sugar to make sure she is not dropping low again.
[2019-11-14] MEDS: XALATAN 0.005% OPH SOLN BOTH EYES SCH (21:17)
[2019-11-14] MEDS: PATIENT'S OWN MED OPH SCH (21:18)
[2019-11-15 05:36] LABS: CALCIUM 8.5 mg/dL (8.8-10.2); CREATININE 4.4 mg/dL (0.5-0.9); MAGNESIUM 1.7 mg/dL (1.5-2.7); PHOSPHORUS 4.5 mg/dL (2.7-4.5); POTASSIUM 4.2 mmol/L (3.5-5.1)
[2019-11-15] MEDS: APRESOLINE PO SCH (05:41)
[2019-11-15] MEDS: HUMALOG SUBQ SCH ×2 (06:13→11:49)
[2019-11-15 07:44] VITALS: BP 153/53
[2019-11-15] MEDS: COMBIGAN OPHTH SOLN OPH SCH (08:31)
[2019-11-15] MEDS: AVAPRO PO SCH (08:31)
[2019-11-15] MEDS: VENOFER 200 MG in NS 150 ML IV SCH (08:31)
[2019-11-15] MEDS: CATAPRES PO SCH (08:31)
[2019-11-15] MEDS: ZETIA PO SCH (08:31)
[2019-11-15] MEDS: MIRALAX PO SCH (08:31)
[2019-11-15] MEDS ORDERED: NORVASC PO SCH (09:00)
[2019-11-15] MEDS ORDERED: LEVEMIR SUBQ SCH (09:00)
--- NOTE | 2019-11-15 16:00 | NEPHROLOGY PROGRESS NOTE ---
DATE: 11/15/2019 SUBJECTIVE: She is feeling better overall. She will be discharged today and can follow up in the outpatient clinic. OBJECTIVE: Vital Signs: Blood pressure 153/53, heart rate 76, respirations 19, afebrile. General: No acute distress. Skin: Warm and dry. Heart: Regular. No gallops. Lungs: Equal. No crackles. Abdomen: Soft. Extremities: No edema. IMPRESSION: Chronic kidney disease 5D. Plan as above. Electrolytes/acid base in target. Hemoglobin is below target. She has been receiving IV iron while in the hospital as well as a single dose of erythropoietin. cc: Ronnie Gannon MD
--- NOTE | 2019-11-15 17:24 | DISCHARGE SUMMARY ---
ADMISSION DATE: 11/10/2019 DISCHARGE DATE: 11/15/2019 CONSULTATIONS: Nephrology, Dr. Gannon. PERTINENT STUDIES: Echocardiogram with left atrial enlargement, normal EF, and tiny posterior pericardial effusion which does not appear hemodynamically significant. Initial creatinine 5.8. DISCHARGE DIAGNOSES: 1. Likely end-stage renal disease. 2. Hypertension. 3. Diabetes. 4. Hypoglycemia. HOSPITAL COURSE: The patient with advanced chronic kidney disease presented with increasing shortness of breath over the 4 days prior to admission. Did endorse some orthopnea. She was in the process of being prepared for dialysis and underwent fistula placement on 09/28/2019. She has been followed by Dr. Gannon. The patient was felt to be volume overloaded. She was evaluated by Nephrology who felt that it was time to initiate dialysis. This was done with resolution of the patient's dyspnea. No infection was identified and echo showed no evidence of congestive heart failure, so it was thought that her volume overload was entirely related to her progressing into likely end-stage renal disease. Once the patient was improved, outpatient dialysis was arranged by Nephrology, and she was discharged home to follow up with her PCP and Dr. Gannon. The patient did have some pretty significant hypoglycemia on her home doses of insulin. She got down to as low as 28 at one point. Her Levemir was cut back from 40 to 30 which did seem to improve things somewhat. Her last day she required no sliding scale/short-acting insulin at all, and she was in largely the low 100s on just the Levemir. In light of this, her home dose of Levemir as well as NovoLog were decreased. Levemir was left at the 30 units that she had been on in the hospital. Mealtime NovoLog was decreased to 3 units. Discussed with the patient that as she goes home if she eats more at home than what she does here, those may need to be adjusted; but given severe hypoglycemia here, it was felt that at least a temporary decrease was warranted. DISCHARGE VITAL SIGNS: Temperature 98.2 degrees, pulse 76, respirations 19, blood pressure 153/53, and O2 saturation 97% on room air. DISCHARGE DIET: Renal. DISCHARGE MEDICATIONS: Hydralazine 100 mg p.o. t.i.d., Benicar 40 mg q. day, glaucoma drops as previously prescribed, isoniazid 300 mg p.o. q. day, Toprol-XL 200 mg p.o. q. day, Zetia 10 mg p.o. q. day, clonidine 0.1 mg p.o. b.i.d., Levemir 30 mg sub-Q q. day, Norvasc 10 mg p.o. q. day, and NovoLog 3 units sub-Q t.i.d. with meals. FOLLOWUP AND PLAN: The patient discharging home to follow up at dialysis. Also to follow up with PCP and Nephrology. The patient on reduced dose of insulin due to hypoglycemia during this hospitalization. TIME SPENT: Greater than 30 minutes were spent arranging discharge and counseling the patient.
--- NOTE | 2019-11-16 09:55 | Extremity Venous Study ---
PROCEDURE NAME: Hemodialysis Access U/S L Arm - 11/14/2019 PROCEDURE PREFORMED: Duplex ultrasound of a left brachiobasilic fistula that has been transposed. REFERRING PHYSICIAN: Dr. Gannon. TECHNOLOGIST: Tiffanie Becerra RVT. INDICATIONS: Measure size and depth of left brachiobasilic AV fistula for dialysis access. Please pricila this fistula on the arm. FINDINGS: The medial left arm was ultrasounded. There is flow through the left brachiobasilic AV fistula. The size of this fistula measures 4.3 to 7.9 mm in greatest dimension. The depth of this fistula is 0.25 cm distally but dives deeper more proximally in the left arm to a depth of 2 to 2.5 cm just distal to the left axilla. INTERPRETATION: This is a functional left transposed brachiobasilic arteriovenous fistula. The size of this fistula is satisfactory. It is superficial distally but does dive deeper into the soft tissue of the medial left arm at approximately the mid arm. cc: MD Ronnie Mckenna MD
== END 2019-11-15 13:02 | disposition home or self-care (01) ==
LOC: ED 10:07 → 1N 15:26 → SUATTDRO 15:26
PROVIDERS: ATTEND Internal Medicine